=== PATIENT | female | born 1960 | race Caucasian/White ===

== ENCOUNTER 2022-06-13 09:35 | Emergency (ER) | payer OTHER ==
[~2022-06-13] VITALS: Ht 167.6 cm; Wt 63.0 kg
[2022-06-13 10:05] VITALS: BP 124/100
[2022-06-13 10:38] LABS: BASO% 0.4 % (0-3); EOS% 3.5 % (0-8); HEMATOCRIT 40.8 % (37.0-47.0); HEMOGLOBIN 13.1 g/dl (12.0-16.0); IMMATURE GRANULOCYTES 0.1 % (0.0-5.0); LYMPH% 18.1 % (15-41); MEAN CELL VOLUME 93.6 fL CALC (80.0-100.0); MEAN CORPUSCULAR HGB CONC 32.1 g/dL CAL (32.0-36.0); MONO% 5.6 % (2-13); NEUT# 5.82 thou/uL (2.00-7.15); NEUT% 72.3 % (42-76); RED BLOOD COUNT 4.36 mill/uL (4.20-5.60); RED CELL DISTRI WIDTH 12.5 % (11.5-15.5)
[2022-06-13 10:54] LABS: ALBUMIN 4.5 g/dL (3.2-5.0); ALKALINE PHOSPHATASE 75 u/l (38-126); ANION GAP 13 (6-22 (CALC)); BILIRUBIN, TOTAL 0.4 mg/dL (0.02-1.3); BUN 14 mg/dL (8-23); BUN/CREATININE RATIO 18 (12-20 (CALC)); CARBON DIOXIDE 27 mmol/l (22-30); CHLORIDE 103 mmol/l (95-108); CREATININE 0.8 mg/dL (0.5-1.0); GFR FOR AFR.AMER. > 60 ML/MIN (>=60 (CALC)); GFR OTHER RACES > 60 ML/MIN (>=60 (CALC)); POTASSIUM 3.8 mmol/l (3.5-5.1); SGOT/AST 29 u/l (9-36); SODIUM 139 mmol/l (137-146); TOTAL PROTEIN 7.6 g/dL (6.3-8.2)
[2022-06-13 11:00] VITALS: BP 119/80
[2022-06-13 12:01] VITALS: BP 131/80
[2022-06-13] MEDS ORDERED: IMITREX50 M1 PO (12:13)
[2022-06-13] MEDS ORDERED: AMOX/K CLAV875 M1 PO (12:13)
[2022-06-13 12:23] VITALS: BP 131/80
== END 2022-06-13 12:37 | disposition home or self-care (01) | DRG 153 ==
LOC: ED 09:35
PROVIDERS: Family Medicine
DX: J32.9 Chronic sinusitis, unspecified (principal); Z20.822 Contact with and (suspected) exposure to COVID-19

== ENCOUNTER 2022-10-10 03:19 | Emergency (ER) | payer OTHER ==
[~2022-10-10] VITALS: Ht 167.6 cm; Wt 54.0 kg
[2022-10-10] VITALS (16 sets, daily range): BP systolic 91–148; BP diastolic 50–82
[~2022-10-10 03:19] MED LIST: AMOX/K CLAV875 M1 PO; IMITREX50 M1 PO
[2022-10-10 04:34] LABS: BASO% 0.5 % (0-3); EOS% 6.9 % (0-8); HEMATOCRIT 40.2 % (37.0-47.0); HEMOGLOBIN 13.5 g/dl (12.0-16.0); IMMATURE GRANULOCYTES 0.9 % (0.0-5.0); LYMPH% 21.4 % (15-41); MEAN CELL VOLUME 92.6 fL CALC (80.0-100.0); MEAN CORPUSCULAR HGB 31.1 pG CALC (26.0-32.0); MEAN CORPUSCULAR HGB CONC 33.6 g/dL CAL (32.0-36.0); MONO% 5.7 % (2-13); NEUT# 7.2 thou/uL (2.00-7.15); NEUT% 64.6 % (42-76); RED BLOOD COUNT 4.34 mill/uL (4.20-5.60); RED CELL DISTRI WIDTH 12.1 % (11.5-15.5)
[2022-10-10 04:45] LABS: ALBUMIN 4.5 g/dL (3.2-5.0); ALKALINE PHOSPHATASE 75 u/l (38-126); AMYLASE 73 u/l (30-110); ANION GAP 13 (6-22 (CALC)); BILIRUBIN, TOTAL 0.3 mg/dL (0.02-1.3); BUN 14 mg/dL (8-23); BUN/CREATININE RATIO 16 (12-20 (CALC)); CARBON DIOXIDE 24 mmol/l (22-30); CHLORIDE 104 mmol/l (95-108); CREATININE 0.9 mg/dL (0.5-1.0); GFR FOR AFR.AMER. > 60 ML/MIN (>=60 (CALC)); GFR OTHER RACES > 60 ML/MIN (>=60 (CALC)); LIPASE 76 u/l (23-300); POTASSIUM 4.2 mmol/l (3.5-5.1); SGOT/AST 29 u/l (9-36); SODIUM 136 mmol/l (137-146); TOTAL PROTEIN 7.5 g/dL (6.3-8.2)
[2022-10-10] MEDS ORDERED: LIBRAX1 CAP PO (09:15)
== END 2022-10-10 09:20 | disposition home or self-care (01) | DRG 392 ==
LOC: ED 03:19
PROVIDERS: Emergency Medicine
DX: K29.50 Unspecified chronic gastritis without bleeding (principal); Z20.822 Contact with and (suspected) exposure to COVID-19
CPT/HCPCS: S0164

== ENCOUNTER 2022-10-11 01:46 | Inpatient (IN) | payer OTHER ==
[~2022-10-11] VITALS: Ht 170.2 cm; Wt 65.0 kg
[2022-10-11] VITALS (9 sets, daily range): BP systolic 107–143; BP diastolic 60–117
[~2022-10-11 01:46] MED LIST changes: +LIBRAX1 CAP PO
[2022-10-11 02:26] LABS: BASO% 0.2 % (0-3); EOS% 1.6 % (0-8); HEMATOCRIT 40.3 % (37.0-47.0); HEMOGLOBIN 13.5 g/dl (12.0-16.0); IMMATURE GRANULOCYTES 0.8 % (0.0-5.0); LYMPH% 12.2 % (15-41); MEAN CELL VOLUME 91.8 fL CALC (80.0-100.0); MEAN CORPUSCULAR HGB 30.8 pG CALC (26.0-32.0); MEAN CORPUSCULAR HGB CONC 33.5 g/dL CAL (32.0-36.0); MONO% 4.9 % (2-13); NEUT# 10.29 thou/uL (2.00-7.15); NEUT% 80.3 % (42-76); RED BLOOD COUNT 4.39 mill/uL (4.20-5.60); RED CELL DISTRI WIDTH 12.2 % (11.5-15.5)
[2022-10-11 02:40] LABS: ALBUMIN 4.1 g/dL (3.2-5.0); ALKALINE PHOSPHATASE 63 u/l (38-126); AMYLASE 62 u/l (30-110); ANION GAP 14 (6-22 (CALC)); BILIRUBIN, TOTAL 0.8 mg/dL (0.02-1.3); BUN 10 mg/dL (8-23); BUN/CREATININE RATIO 12 (12-20 (CALC)); CARBON DIOXIDE 21 mmol/l (22-30); CHLORIDE 106 mmol/l (95-108); CREATININE 0.8 mg/dL (0.5-1.0); GFR FOR AFR.AMER. > 60 ML/MIN (>=60 (CALC)); GFR OTHER RACES > 60 ML/MIN (>=60 (CALC)); LIPASE 65 u/l (23-300); SGOT/AST 31 u/l (9-36); SODIUM 137 mmol/l (137-146); TOTAL PROTEIN 6.9 g/dL (6.3-8.2)
[2022-10-12 03:55] VITALS: BP 103/60
[2022-10-12 06:22] LABS: HEMATOCRIT 35.2 % (37.0-47.0); MEAN CELL VOLUME 95.9 fL CALC (80.0-100.0); MEAN CORPUSCULAR HGB 31.3 pG CALC (26.0-32.0); MEAN CORPUSCULAR HGB CONC 32.7 g/dL CAL (32.0-36.0); RED BLOOD COUNT 3.67 mill/uL (4.20-5.60); RED CELL DISTRI WIDTH 12.6 % (11.5-15.5)
[2022-10-12 06:29] LABS: HEMOGLOBIN 11.5 g/dl (12.0-16.0)
[2022-10-12 06:48] LABS: ALKALINE PHOSPHATASE 47 u/l (38-126); ANION GAP 8 (6-22 (CALC)); BILIRUBIN, TOTAL 0.7 mg/dL (0.02-1.3); BUN 9 mg/dL (8-23); BUN/CREATININE RATIO 12 (12-20 (CALC)); CARBON DIOXIDE 25 mmol/l (22-30); CHLORIDE 108 mmol/l (95-108); CREATININE 0.7 mg/dL (0.5-1.0); GFR FOR AFR.AMER. > 60 ML/MIN (>=60 (CALC)); GFR OTHER RACES > 60 ML/MIN (>=60 (CALC)); MAGNESIUM 1.8 mg/dL (1.6-2.3); POTASSIUM 4.1 mmol/l (3.5-5.1); SGOT/AST 23 u/l (9-36); SODIUM 137 mmol/l (137-146)
[2022-10-12 06:52] LABS: ALBUMIN 2.9 g/dL (3.2-5.0); TOTAL PROTEIN 5.3 g/dL (6.3-8.2)
[2022-10-12 07:00] VITALS: BP 108/65
== END 2022-10-12 11:01 | disposition home or self-care (01) | DRG 390 ==
LOC: ED 01:46 → ED-I 05:00 → ED 05:19 → MS2 05:20
PROVIDERS: Emergency Medicine; ADMIT Student in an Organized Health Care Education/Training Program; ATTEND Student in an Organized Health Care Education/Training Program
DX: K56.50 Intestinal adhesions [bands], unspecified as to partial versus complete obstruction (principal); K29.70 Gastritis, unspecified, without bleeding; Z90.710 Acquired absence of both cervix and uterus; Z86.19 Personal history of other infectious and parasitic diseases
CPT/HCPCS: Q9967; S0164